=== PATIENT | male | born 1995 | race Caucasian/White ===

== ENCOUNTER 2018-05-23 10:26 | Emergency (ER) | payer OTHER ==
[2018-05-23 10:40] VITALS: BP 126/70
--- NOTE | 2018-05-23 10:51 | ED Physician Documentation ---
PD HPI WOUND RECHECK - Stated complaint Stated Complaint: STITCH REMOVAL - Chief complaint Chief Complaint: Laceration - Histroy obtained from History obtained from: Patient - History of Present Illness Location: Lip Timing - onset: How many days ago (4) Recently seen: Emergency Dept (4 days ago.) - Additional information Additional information: The patient is a 22-year-old male who presents for suture removal. He had a single suture placed in a lower lip laceration 4 days ago. He was advised to return in 4 or 5 days for removal of the suture. Review of Systems Constitutional: denies: Fever Nose: denies: Congestion Skin: reports: Laceration (s) (Lip laceration healing well.) Neurologic: denies: Headache PD PAST MEDICAL HISTORY - Present Medications Home Medications: Ambulatory Orders Medication Instructions Recorded Confirmed No Known Home Medications 05/23/18 05/23/18 - Allergies Allergies/Adverse Reactions: Allergies Allergy/AdvReac Type Severity Reaction Status Date / Time No Known Drug Allergies Allergy Verified 05/23/18 10:40 - Social History Additional Social History: The patient is visiting here from [place]. PD ED PE NORMAL - Vitals Vital signs reviewed: Yes (normal) - General General: Alert and oriented X 3, Well developed/nourished - HEENT HEENT: Other (Small laceration on the right side of the lower lip, is healing well, without swelling or erythema.) - Neck Neck: No adenopathy - Respiratory Respiratory: No respiratory distress Results - Vitals Vitals: Oxygen O2 Source Room air Procedures - Suture/staple Removal (location) lower lip Suture/staple removal: # sutures (1), No complications PD MEDICAL DECISION MAKING - ED course Complexity details: d/w patient ED course: The patient presented for suture removal 4 days after laceration repair of his lower lip. The wound appears to be healing well. The single suture was removed without difficulty. I discussed with him potentially worrisome signs or symptoms that should prompt reevaluation. Departure - Departure Disposition: 01 Home, Self Care Clinical Impression: Visit for suture removal Condition: Stable Instructions: ED Wound Check Sutr Remove No Infec Discharge Date/Time: 05/23/18 11:01
== END 2018-05-23 11:01 | disposition home or self-care (01) ==
LOC: ED 10:26
DX: S01.511D Laceration without foreign body of lip, subsequent encounter (principal); X58.XXXD Exposure to other specified factors, subsequent encounter
CPT/HCPCS: 99282